=== PATIENT | male | born 2000 | race African-American/Black ===

== ENCOUNTER 2018-10-04 19:41 | Emergency (ER) | payer OTHER ==
[2018-10-04 19:49] VITALS: BP 115/62; PULSE 80; TEMP 98.5; BMI 24.3
--- NOTE | 2018-10-04 19:51 | PDOC ---
Rapid Medical Evaluation Chief Complaint: Abrasion Time Seen by Provider: 10/04/18 19:45 Medical Evaluation: Allergies Allergy/AdvReac Type Severity Reaction Status Date / Time No Known Allergies Allergy Unverified 10/11/17 13:11 10/04/18 19:46 I have performed a brief in-person evaluation of this patient. The patient presents with a chief complaint of: scratched by stray cat to right thumb ~ 1 hour ago. Has cat at home Pertinent physical exam findings: superficial scratch to hand I have ordered the following: nothing The patient will proceed to the ED for further evaluation. 10/04/18 19:49 Discharge Disposition - Diagnosis Cat scratch - Referrals - Patient Instructions - Post Discharge Activity
--- NOTE | 2018-10-04 20:44 | PDOC ---
History of Present Illness - General Chief Complaint: Abrasion Stated Complaint: R/HAND/ABRASION Time Seen by Provider: 10/04/18 19:45 History Source: Patient - History of Present Illness Initial Comments: 10/04/18 20:42 18-year-old male with a scratch from cat to right hand. Noted to have small abrasion. Patient washed the wound after being scratch. Patient worried about rabies. Cat is rescued by sister and has been living with the family for the last 10 days. No abnormal behavior for the cat. Past History - Past Medical History Allergies/Adverse Reactions: Allergies Allergy/AdvReac Type Severity Reaction Status Date / Time No Known Allergies Allergy Unverified 10/04/18 19:47 Home Medications: Ambulatory Orders Cephalexin Monohydrate [Keflex -] 500 mg PO Q8H #15 capsule 10/11/17 COPD: No - Suicide/Smoking/Psychosocial Hx Smoking History: Never smoked Have you smoked in the past 12 months: No Hx Alcohol Use: No Drug/Substance Use Hx: No Substance Use Type: None Review of Systems - Review of Systems Able to Perform ROS?: Yes Is the patient limited Polish proficient: No Integumentary: Yes: Other (abrasion) *Physical Exam - Vital Signs Last Vital Signs Temp Pulse Resp BP Pulse Ox 98.5 F 80 18 115/62 97 10/04/18 19:47 10/04/18 19:47 10/04/18 19:47 10/04/18 19:47 10/04/18 19:47 - Physical Exam General Appearance: Yes: Appropriately Dressed Extremity: positive: Other (abrasion to the right hand) *DC/Admit/Observation/Transfer Diagnosis at time of Disposition: Cat scratch - Discharge Dispostion Disposition: HOME - Referrals Referrals: Citlaly Hernandez [Primary Care Provider] - - Patient Instructions Printed Discharge Instructions: DI for Abrasion Additional Instructions: follow-up with your doctor in 2 days for a wound check. Return to the emergency room for a work worsening symptoms - Post Discharge Activity Forms/Work/School Notes: Back to Work
== END 2018-10-04 20:49 | disposition home or self-care (01) ==
LOC: JERFT 19:41
DX: S60.511A Abrasion of right hand, initial encounter (principal); W55.03XA Scratched by cat, initial encounter; Y93.K9 Activity, other involving animal care; Y99.8 Other external cause status; Y92.018 Other place in single-family (private) house as the place of occurrence of the external cause
CPT/HCPCS: 99281-25